=== PATIENT | male | born 1960 | race Caucasian/White ===

== ENCOUNTER → 2023-01-24 15:59 | Outpatient (CLI) | payer OTHER, SELFPAY ==
--- NOTE | ~2023-01-24 | MR_ITS ---
EXAMINATION: MR lumbar spine wo con DATE: 01/24/2023 16:30 INDICATION: Left leg pain and paresthesias. TECHNIQUE: Magnetic resonance imaging (MRI) of the lumbar spine was performed without intravenous con trast. Sequences included sagittal T2-weighted FSE, sagittal T2-weighted FS FSE, sagittal T1-weighted FSE, and axial T2-weighted FSE. COMPARISON: None FINDINGS: Bone alignment is normal. Vertebral body heights and intervertebral disc heights are normal . The distal spinal cord signal intensity is normal. The conus medullaris is at L2. The following dis c levels are specifically discussed: L1-L2: The disc does not extend beyond the endplate margin. There is mild bilateral facet joint osteo arthritis. There is no neural foraminal stenosis. There is no central canal stenosis. L2-L3: There is a left foraminal protrusion. There is mild bilateral facet joint osteoarthritis. Ther e is mild left neural foraminal stenosis. There is no central canal stenosis. L3-L4: The disc does not extend beyond the endplate margin. There is moderate bilateral facet joint o steoarthritis. There is no neural foraminal stenosis. There is no central canal stenosis. L4-L5: The disc is bulging and has an annular fissure. There is moderate bilateral facet joint osteoa rthritis. There is mild bilateral neural foraminal stenosis. There is mild central canal stenosis. L5-S1: The disc is bulging with superimposed left subarticular zone extrusion with mass effect on lef t S1 nerve root in left lateral recess. There is mild right and moderate left facet joint osteoarthri tis. There is mild bilateral neural foraminal stenosis. There is mild central canal stenosis. There i s severe stenosis of left lateral recess. IMPRESSION: 1. Extrusion at L5-S1 with mass effect on left S1 nerve root. Reviewed, dictated and finalized at location E. INE RIGGER
== END ==
PROVIDERS: PCP Family Medicine Adolescent Medicine; Visit Provider Family Medicine Adolescent Medicine
DX: M51.27 Other intervertebral disc displacement, lumbosacral region (principal); R90.89 Other abnormal findings on diagnostic imaging of central nervous system
CPT/HCPCS: 72148

== ENCOUNTER 2024-07-07 16:07 | Emergency (ER) | payer OTHER, SELFPAY ==
[2024-07-07 16:16] VITALS: BP 147/90; PULSE 86; RESP 16; TEMP 36.9; O2SAT 97
--- NOTE | 2024-07-07 16:30 | ED_ITS ---
HPI - Extremity Injury (Lower) General Chief Complaint: Extremity Injury, Lower Stated Complaint: Leg Pain Source: patient Mode of arrival: ambulatory Limitations: no limitations History of Present Illness HPI Narrative: Patient is a 64 year old male who presents to the clinic with complaints of right jeronimo pain. He states he ran up a big hill six days ago and has had pain since. He has not been taking anything for pain. Denies having any numbness, tingling, or radiation of pain. Related Data Allergies Allergy/AdvReac Type Severity Reaction Status Date / Time No Known Allergies Allergy Verified 07/07/24 16:19 Review of Systems Review of Systems: CONSTITUTIONAL: Denies body aches, fever, chills EYES: Denies visual changes ENT: Denies rhinorrhea, congestion CARDIOVASCULAR: Denies chest pain, palpitations, or edema. RESPIRATORY: Denies cough or dyspnea. SKIN: Denies rash, itching, or wounds. MUSCULOSKELETAL: reports right jeronimo pain. NEUROLOGIC: Denies headache, numbness, tingling, or weakness. All systems reviewed & are unremarkable except as noted in HPI and below PMFSH Surgical History Surgical History History of nasal septoplasty (2002) Family History Family History Mother Alzheimer disease Father Hypertension Social History Social History Smoking status: Never smoker Alcohol intake: never Substance use: never Substance use type: does not use Do You Feel Safe in your Home?: Yes Lack of Transportation: No Lack of Food: Never True Current Housing: I Have Housing Concerned About Future Housing: No Difficulty Paying Gas/Electric Bills: No Difficulty Paying for Meds: No Currently Unemployed: No Education: Trade/Vocational Certificate Difficulty w/ Childcare or Family Care: No Comments At time of signature, I have reviewed and agree with nursing past medical, surgical, social and family history unless otherwise noted. Please see nursing chart for further information. There is no relevant family history pertinent to the presenting complaint. Exam Narrative: GENERAL: Well-appearing, well-nourished, and in no acute distress. HEAD: Normocephalic, atraumatic. NECK: Supple. CHEST: Speaks in full sentences. No respiratory distress. HEART: Regular rate and rhythm. Normal and equal peripheral pulses. EXTREMITIES: Right jeronimo has normal strength and sensation, normal range of motion, but endorses pain with movement. No edema or ecchymosis, No point tenderness. No open wounds, skin tenting, or obvious deformity; alignment normal, pulse palpable and equal bilaterally, skin warm, dry, pink. Achilles intact. Capillary refill less than 3 seconds. Distal sensation intact. SKIN: Warm, dry, no rash. NEURO: Alert and oriented x3. PSYCH: Normal mood and affect Course Course Level of Care: Express Care Visit Vital Signs Vital signs: Vital Signs Temperature 98.4 F 07/07/24 16:16 Pulse Rate 86 07/07/24 16:16 Respiratory Rate 16 07/07/24 16:16 Blood Pressure 147/90 H 07/07/24 16:16 Pulse Oximetry 97 07/07/24 16:16 Oxygen Delivery Room Air 07/07/24 16:16 Temperature 98.4 F 07/07/24 16:16 Pulse Rate 86 07/07/24 16:16 Respiratory Rate 16 07/07/24 16:16 Blood Pressure 147/90 H 07/07/24 16:16 Pulse Oximetry 97 07/07/24 16:16 Oxygen Delivery Room Air 07/07/24 16:16 Reviewed. MDM - Extremity Injury (Lower) MDM Narrative Medical decision making narrative: Discussed physical exam findings. Advised supportive measures and signs/symptoms to go to the ER. Pt is appropriate for outpatient treatment and follow up. Differential Diagnosis Differential diagnosis: Likely other (jeronimo splints, strain of jeronimo, tibia fracture, tendonitis. ) Critical Care Time Critical Care Time Critical Care Time: No Discharge Plan Discharge Clinical Impression: Pain in right jeronimo Patient Disposition: Home Condition: Stable Instructions: Leg Pain (ED) Additional Instructions: Rest. Avoid running or excessive walking or anything that worsens the symptoms Take ibuprofen as prescribed. Alternate ice/heat to the site. Lidocaine or salon pas pain patch or use pain cream like icy/hot or biofreeze. Follow up with your primary care provider as needed in 1 week Go to the ER for worsening symptoms or concerns Patient Language: Bel[place]ian Prescriptions: New ibuprofen 800 mg tablet 800 mg PO TID PRN (Reason: pain) Qty: 30 0RF Follow-up/Referrals: PHYSICIAN,ALMOND BLANCHER OPERATOR [Primary Care Provider] - Stand Alone Forms: Work/School Release IP Time of Disposition: 16:44
== END 2024-07-07 16:50 | disposition home or self-care (01) ==
DX: M79.661 Pain in right lower leg (principal)
CPT/HCPCS: 99213; G0463